=== PATIENT | female | born 1965 | race Two or more races ===

== ENCOUNTER → 2018-11-17 | Outpatient (CLI) | payer OTHER ==
[~2018-11-17] MED LIST: DOCU100 PO; Hydrochlorothia25 MG PO; IBUP800 PO; LEVOTHYROXINE PO; LEVSOD100; LEVSOD75 PO; LOSA25 PO; LOSA50 PO; OMEP10ER PO; OXYACE5T PO; PANT40 PO; Roxicodone5 MG PO; UNKNOWN MED
[2018-11-18 08:18] LABS: Candida species (DNA Probe) Positive (NEGATIVE); G. vaginalis (DNA Probe) Negative (NEGATIVE); T. vaginalis (DNA Probe) Negative (NEGATIVE)
== END | disposition home or self-care (01) ==
LOC: LAB SHORT 12:26 → LAB 12:26
PROVIDERS: Obstetrics & Gynecology
DX: N76.0 Acute vaginitis (principal)
CPT/HCPCS: 87480; 87510; 87660